=== PATIENT | female | born 1995 | race Caucasian/White ===

== ENCOUNTER 2017-01-11 19:19 | Emergency (ER) | payer OTHER ==
[2017-01-11 19:32] VITALS: BP 144/91
[2017-01-11] MEDS ORDERED: PONTOCAINE 0.5% OPH SOLUTION LEFT EYE ONE (20:41)
[2017-01-11] MEDS ORDERED: FLUORI-I-STRIP OPH ONE (20:41)
--- NOTE | 2017-01-11 20:43 | PROVIDER DOCUMENTATION ---
HPI-EENT General - General Chief Complaint: Eye Complaint Stated Complaint: SWOLLEN EYE Time Seen by Provider: 01/11/17 20:37 Allergies/Adverse Reactions: Patient Allergies Allergy/AdvReac Type Severity Reaction Status Date / Time glucose [Glucose] Allergy Severe Unknown Verified 01/11/17 19:32 Sutures AdvReac Mild Unknown Uncoded 01/11/17 19:32 Home Medications: Home Medication List Medication Instructions Recorded Confirmed Last Taken Type Calcium Carbonate [Calcium] 1,200 mg PO DAILY 09/01/12 01/11/17 08/09/16 08:40 History Multivitamin [Multi-Day Vitamins] 1 each PO DAILY 09/01/12 01/11/17 08/09/16 08: 40 History S-Adenosylmethionine Sul Tosyl 200 mg PO DAILY 09/01/12 01/11/17 08/09/16 08:40 History [Daniel-E] Levocarnitine [l-Carnitine] 900 mg PO DAILY 05/27/14 01/11/17 08/09/16 08:40 History Alpha Lipoic Acid 600 mg PO DAILY 09/13/14 01/11/17 08/09/16 08:40 History Zinc 100 mg PO QAM 09/13/14 01/11/17 08/09/16 08:40 History Potassium Citrate [Urocit-K] 1,680 meq PO BID 10/22/14 01/11/17 08/09/16 08:40 History Riboflavin [Vitamin B-2] 100 mg PO QAM 12/03/15 01/11/17 08/09/16 08:40 History Ciprofloxacin 0.3% Ophth Soln 2 drop LEFT EYE 4XDAY #1 bottle 01/11/17 Unknown Rx [Ciloxan Ophth Soln] - History of Present Illness-EENT General Nature of Presenting Problem: Pt was watching TV when all of a sudden the left eye started to swell. Pt left eye red. Mild swelling noted. 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 - PRIOR SURGERIES/PROCEDURES Surgical/Procedure History: reports: other (bilateral tendon surgery) - IMMUNIZATION STATUS Childhood Immunizations: See Nurse Assessment Flu Vaccine: See Nurse Assessment Departure - Departure Time of Disposition Order: 21:[id number] DIAGNOSIS: Conjunctivitis Qualifiers: Conjunctivitis type: acute Acute conjunctivitis type: unspecified Laterality: left Qualified Code(s): H10.32 - Unspecified acute conjunctivitis, left eye Disposition: HOME 01 Certified Medical Emergency: Emergent Condition: Stable Additional Instructions: ED Follow Up Instructions: You have been treated by a care provider in the Emergency Department. These instructions are being provided to you so you can have an understanding of how to care for yourself upon discharge. Upon discharge from the Emergency Department, you are responsible for making arrangements for follow-up care by a physician of your choice. Take all prescribed medications as directed. Return to the Emergency Department immediately for any new or worsening symptoms. You may call the Physician Referral phone number at [phone] to obtain a list of Physicians who are taking new patients. Prescriptions: Ciprofloxacin 0.3% Ophth Soln [Ciloxan Ophth Soln] 2 drop LEFT EYE 4XDAY #1 bottle
== END 2017-01-11 23:35 | disposition home or self-care (01) ==
LOC: P.ED 19:19
DX: H10.32 Unspecified acute conjunctivitis, left eye (principal); R22.0 Localized swelling, mass and lump, head; Z79.899 Other long term (current) drug therapy
CPT/HCPCS: 99282